=== PATIENT | female | born 1970 | race Caucasian/White ===

== ENCOUNTER 2023-12-10 21:11 | Emergency (ER) | payer OTHER ==
[2023-12-10 21:20] VITALS: RESP 18; TEMP 98; BMI 25.6
[2023-12-10] MEDS ORDERED: ONDANSETRON 4 MG/2 ML VIAL ONE (22:13)
[2023-12-10] MEDS: SODIUM CHLORIDE 1,000 ML IV STA (22:23)
[2023-12-10] MEDS: ONDANSETRON 4 MG/2 ML VIAL IVPUSH ONE (22:23)
[2023-12-10 22:30] LABS: HEMOGLOBIN 12.4 G/dL (10.7-15.3); MCH 30.1 pg (25.7-33.7); MCHC 32.6 g/dl (32.0-36.0); MEAN CELL VOLUME 92.4 fl (80-96); MEAN PLT VOLUME 8.2 fl (7.5-11.1); PLATELET COUNT 298.2 10^3/uL (134-434); RBC 4.11 10^6/uL (3.60-5.2); RDW 14.3 % (11.6-15.6); WHITE BLOOD COUNT 15.6 10^3/uL (4.0-10.8)
[2023-12-10 22:43] LABS: PLATELET ESTIMATE ADEQUATE
[2023-12-10 22:53] LABS: ALBUMIN 4.5 g/dl (3.4-5.0); BILIRUBIN,TOTAL 0.6 mg/dl (0.2-1); CALCIUM 9.8 mg/dl (8.5-10.1); CREATININE 0.6 mg/dl (0.6-1.3); TOT PROT 7.9 g/dl (6.4-8.2)
[2023-12-10 23:01] LABS: POTASSIUM 4.8 mmol/L (3.5-5.1)
[2023-12-10 23:39] VITALS: BP 131/55; PULSE 77
[2023-12-11] MEDS ORDERED: ONDANSETRON *ODT* 4 MG TABLET ONE (00:54)
== END 2023-12-11 01:10 | disposition home or self-care (01) ==
LOC: FER 21:11
PROC: 3E033GC Introduction of Other Therapeutic Substance into Peripheral Vein, Percutaneous Approach (ICD-10-PCS; principal; 2023-12-10)
PROC: 3E0337Z Introduction of Electrolytic and Water Balance Substance into Peripheral Vein, Percutaneous Approach (ICD-10-PCS; 2023-12-10)
DX: K52.9 Noninfective gastroenteritis and colitis, unspecified (principal); R11.2 Nausea with vomiting, unspecified; R10.13 Epigastric pain; R42 Dizziness and giddiness
CPT/HCPCS: 36415; 80053; 85027; 99284-25